=== PATIENT | female | born 1980 | race Caucasian/White ===

== ENCOUNTER 2022-12-15 19:10 | Emergency (ER) | payer OTHER, SELFPAY ==
[2022-12-15 19:23] VITALS: BP 129/77; PULSE 87; RESP 16; TEMP 36.9; O2SAT 97
--- NOTE | 2022-12-15 19:23 | ED.WOUNDLAC ---
HPI - Wound/Laceration General Chief Complaint: Skin/Abscess/Foreign Body Stated Complaint: Insect Bite Time Seen by Provider: 12/15/22 19:23 Source: patient Mode of arrival: ambulatory Limitations: no limitations History of Present Illness HPI narrative: 42-year-old female presented for complaint of possible insect bite to the left breast, first noticed today. Endorses mild redness with a puncture site at the center. Denies pain, itching, or drainage to the site. Has not applied anything to the site. Denies any other locations of lesions. Related Data Home Medications Medication Instructions Recorded Confirmed bupropion HCl 150 mg 24 hr tablet, 150 mg PO DAILY 12/15/22 12/15/22 extended release bupropion HCl 300 mg 24 hr tablet, 300 mg PO DAILY 12/15/22 12/15/22 extended release sertraline 100 mg tablet 100 mg PO DAILY 12/15/22 12/15/22 Allergies Allergy/AdvReac Type Severity Reaction Status Date / Time No Known Allergies Allergy Verified 12/15/22 19:25 Review of Systems Review of Systems: CONSTITUTIONAL: Denies body aches, fever, chills, or sweats. EYES: Denies visual changes, redness, or discharge. ENT: Denies rhinorrhea, congestion CARDIOVASCULAR: Denies chest pain, palpitations, or edema. RESPIRATORY: Denies cough or dyspnea. GASTROINTESTINAL: Denies abdominal pain, nausea, vomiting, or diarrhea. SKIN: per HPI MUSCULOSKELETAL: Denies back pain, joint pain, or myalgia. NEUROLOGIC: Denies headache, numbness, tingling, or weakness. [facility] Past Medical History Medical History (Updated 12/15/22 @ 19:35 by Yaima Chung APRN) No pertinent past medical history Comments At time of signature, I have reviewed and agree with nursing past medical, surgical, social and family history unless otherwise noted. Please see nursing chart for further information. There is no relevant family history pertinent to the presenting complaint Exam Narrative: GENERAL: Well-appearing HEAD: Normocephalic, atraumatic. EYES: conjunctivae clear, and EOMI. ENT: Mucous membranes moist. Oropharynx without edema, erythema or lesions. NECK: Supple. No lymphadenopathy CHEST: Clear to auscultation. HEART: Regular rate and rhythm. SKIN: Warm, dry. left medial breast 8 o'clock to nipple puncture site c/w insect bite, surrounding erythema of approx 3cm diameter, approx 2cm faint linear streaking; nontender, no induration or fluctuance NEURO: Alert and oriented x3. Course Course Emergency Course: Patient is aware of diagnosis, understands and agrees to treatment plan. Anticipatory guidance given. Patient agrees to follow-up as directed and is aware of reasons to seek care at the emergency department. Portions of this record may have been created with voice recognition software Level of Care: Express Care Visit Vital Signs Vital signs: Reviewed MDM - Wound/Laceration MDM Narrative Medical decision making narrative: Discussed physical exam findings. Advised supportive measures and signs/symptoms to go to the ER. Pt is appropriate for outpt treatment and f/u. Discharge Plan Discharge Clinical Impression: Insect bites Patient Disposition: Home, Self-Care Condition: Stable Instructions: Antibiotic Form, Insect Bite or Sting (ED) Additional Instructions: Cleanse with warm soapy water Keep your wound covered if draining Warm compresses at least 4 times a day to the site to help expel any drainage. Take antibiotic as directed Tylenol and ibuprofen every 8 hours for pain as needed Follow up with your primary care provider as needed in 1 week Go to the ER for worsening symptoms or concerns Prescriptions: New amoxicillin-pot clavulanate 875-125 mg tablet 1 tablet PO Q12H 7 Days Qty: 14 0RF No Action sertraline 100 mg tablet bupropion HCl 300 mg tablet extended release 24 hr PO bupropion HCl 150 mg tablet extended release 24 hr PO Follow
== END 2022-12-15 19:30 | disposition home or self-care (01) ==
PROVIDERS: Emergency Provider Nurse Practitioner Family; PCP Physician Assistant
DX: S20.162A Insect bite (nonvenomous) of breast, left breast, initial encounter (principal); W57.XXXA Bitten or stung by nonvenomous insect and other nonvenomous arthropods, initial encounter; F41.9 Anxiety disorder, unspecified; F32.A Depression, unspecified
CPT/HCPCS: 99203; G0463